=== PATIENT | male | born 1965 | race Caucasian/White ===

== ENCOUNTER → 2019-02-26 17:40 | Outpatient (CLI) | payer OTHER, SELFPAY ==
--- NOTE | 2019-02-26 17:46 | DI.MRI.S_ITS ---
PROCEDURE: MR HEAD/BRAIN WO CON INDICATIONS: olfactory hallucination TECHNIQUE: Noncontrast axial T1 spin echo, axial T2 fast spin echo, sagittal and axial FLAIR, coronal T2 fast spin echo, axial gradient echo, axial diffusion and ADC through the brain. COMPARISON: None. FINDINGS: Image quality: Excellent. CSF Spaces: Basal cisterns are patent. No extra-axial fluid collections. Ventricles are normal in size and shape. Note is made of empty sella. Brain: There is empty sella or a cyst in the pituitary fossa. No intracranial masses or hemorrhage. Flower/white matter interface is normal. Brainstem appears normal. Diffusion-weighted images demonstrate no acute ischemic insult. No chronic ischemic insults. Normal intravascular flow voids are present. Skull and face: Calvarium has normal marrow signal. Orbits appear normal. Sinuses: There is mucosal thickening in maxillary sinuses bilaterally, left witho right. Mastoids are clear. IMPRESSION: 1. No acute intracranial abnormalities. 2. Empty sella or a cyst in the pituitary fossa. Please correlate with pituitary function. If clinically indicated, contrast enhanced images may be obtained. 3. Maxillary sinus disease, left greater than right. Dictated by: Christen Singh M.D. on 02/27/2019 at 7:44 Approved by: Christen Singh M.D. on 02/27/2019 at 10:14
== END ==
PROVIDERS: Family Provider Nurse Practitioner Family; PCP Nurse Practitioner Family; Visit Provider Nurse Practitioner Family
DX: R44.2 Other hallucinations (principal); J32.0 Chronic maxillary sinusitis
CPT/HCPCS: 70551

== ENCOUNTER → 2019-02-28 08:17 | Outpatient (CLI) | payer OTHER, SELFPAY ==
[2019-02-28 08:40] LABS: Hematocrit 47.4 % (41-53); Hemoglobin 16.5 g/dL (13.5-17.5); Mean Corpuscular HGB Conc 34.8 % (30-36); Mean Corpuscular Volume 86.4 fL (80-100); Platelet Count 251 X10^3/uL (150-400); Red Blood Cell Count 5.49 X10^6/uL (4.5-5.9); Red Cell Distribution Width 12.3 % (11.6-14.8); White Blood Cell Count 5.2 X10^3/uL (4.5-11.0)
[2019-02-28 08:53] LABS: Alanine Aminotransferase 42 IU/L (21-72); Albumin 4.4 g/dL (3.5-5.0); Albumin Globulin Ratio 1.6 (1.0-2.8); Alkaline Phosphatase 45 U/L (38-126); Aspartate Aminotransferase 29 IU/L (17-59); Bilirubin Total 0.5 mg/dL (0.2-1.3); Blood Urea Nitrogen 24 mg/dL (9-20); Calcium 9.5 mg/dL (8.4-10.2); Carbon Dioxide 26 mmol/L (22-32); Chloride 107 mmol/L (98-107); Cholesterol 201 mg/dL (140-199); Estimated Glomerular Filt Rate > 60.0 mL/min (>60); Globulin 2.8 g/dL (1.7-4.1); Glucose 134 mg/dL (70-100); HDL Cholesterol 32 mg/dL (40-60); HEMOLYSIS < 15 (0-50); LDL Cholesterol Calculated 151 mg/dL (<100); Potassium 4.3 mmol/L (3.4-5.1); Sodium 142 mmol/L (137-145); Total Protein 7.2 g/dL (6.3-8.2); Triglycerides 91 mg/dL (35-150)
[2019-02-28 09:09] LABS: Prolactin 12.2 ng/mL (3.7-17.9)
[2019-02-28 09:31] LABS: Follicle Stimulating Hormone 7.61 mIU/mL; Luteinizing Hormone 3.59 mIU/mL
[2019-02-28 09:43] LABS: TSH w/ Reflex to FT4 2.68 uIU/mL (0.47-4.68)
[2019-03-03 16:03] LABS: Adrenocorticotropic Hormone 13 pg/mL (6-50)
[2019-03-04 15:25] LABS: Growth Hormone 0.1 ng/mL (< 7.2)
== END ==
PROVIDERS: Family Provider Nurse Practitioner Family; PCP Nurse Practitioner Family; Visit Provider Nurse Practitioner Family
DX: Z00.00 Encounter for general adult medical examination without abnormal findings (principal); K76.0 Fatty (change of) liver, not elsewhere classified; E23.7 Disorder of pituitary gland, unspecified; Z13.6 Encounter for screening for cardiovascular disorders
CPT/HCPCS: 36415; 80053; 80061; 82024; 83001; 83002; 84146; 84443; 85027; 86277

== ENCOUNTER → 2019-06-30 07:43 | Outpatient (CLI) | payer BC, SELFPAY ==
--- NOTE | 2019-06-30 07:44 | DI.MRI.S_ITS ---
PROCEDURE: MR BRAIN (PITUITARY) WWO CON INDICATIONS: abnormal MRI, empty sella or pituitary cyst TECHNIQUE: Noncontrast sagittal and axial FLAIR, axial gradient echo, axial diffusion and ADC through the brain. Thin-slice sagittal and coronal T1 spin echo, coronal T2 fast spin echo through the pituitary. After the administration contrast, optional dynamic coronal T1 spin echo, thin-slice coronal and sagittal T1 spin echo images through the pituitary fossa; axial T1 spin echo with fat saturation through the brain. COMPARISON: [facility], MR, MR HEAD/BRAIN WO CON, 02/26/2019, 18:04. FINDINGS: Image quality: Excellent. Pituitary Gland: Pituitary gland demonstrates congenital variation of empty sella. The infundibulum is midline. CSF Spaces: Ventricles are normal in size and shape. Basal cisterns are patent. No extra-axial fluid collections. Brain: No intracranial bleeds or mass effects. No abnormal intracranial enhancement. Flower-white matter interface is intact. Diffusion weighted images demonstrate no acute ischemic insults. Brainstem is normal. Normal intravascular flow voids are present. Skull and face: Calvarial marrow is normal in signal. Orbits appear normal. Sinuses: Sinuses and mastoids are clear. IMPRESSION: 1. Congenital variation of empty sella. 2. No acute intracranial process. Dictated by: Fiona Sams M.D. on 06/30/2019 at 10:33 Approved by: Fiona Sams M.D. on 06/30/2019 at 10:41
== END ==
PROVIDERS: Family Provider Nurse Practitioner Family; PCP Nurse Practitioner Family; Visit Provider Nurse Practitioner Family
DX: R93.89 Abnormal findings on diagnostic imaging of other specified body structures (principal); E23.6 Other disorders of pituitary gland
CPT/HCPCS: 70553; A9579

== ENCOUNTER → 2019-07-02 17:13 | Outpatient (CLI) | payer BC, SELFPAY ==
--- NOTE | 2019-07-02 17:18 | DI.RAD.S_ITS ---
PROCEDURE: XR RIBS LT MIN 3V W CXR1V INDICATIONS: fall on log/L side ribs TECHNIQUE: 4 views of the left ribs were acquired, along with a single view chest. COMPARISON: None. FINDINGS: Surgical changes and devices: None. Bones and chest wall: No fractures or dislocations. There is questionable cortical step-off involving the lateral left sixth rib however no technically indeterminate No suspicious bony lesions. Overlying soft tissues appear unremarkable. Lungs and pleura: No pleural effusions or pneumothorax. Lungs appear clear. Mediastinum: Mediastinal contours appear normal. Heart size is normal. IMPRESSION: Questionable/subtle cortical step-off involving the lateral left sixth rib however technically indeterminate. Elsewhere, no definite or displaced rib fractures identified No acute cardiopulmonary disease Dictated by: Cecilio Thomas M.D. on 07/02/2019 at 18:35 Approved by: Cecilio Thomas M.D. on 07/02/2019 at 18:40
== END ==
PROVIDERS: Family Provider Nurse Practitioner Family; PCP Nurse Practitioner Family; Visit Provider Physician Assistant
DX: R07.81 Pleurodynia (principal)
CPT/HCPCS: 71101

== ENCOUNTER 2019-08-07 09:31 | Day surgery (SDC) | payer BC, SELFPAY ==
[2019-08-07 09:46] VITALS: BP 126/85; PULSE 81; RESP 16; TEMP 36.9; O2SAT 95; BMI 32.7
[2019-08-07] MEDS: SODIUM CHLORIDE 0.9% 1,000 ML 200 ML IV (10:09)
--- NOTE | 2019-08-07 10:45 | PM.HP.1 ---
History of Present Illness History of Present Illness Date Patient Seen: 08/07/19 Time Patient Seen: 10:45 Chief complaint: [id number] Narrative: This is a 53-year-old man who has never had a screening colonoscopy. He denies any personal or family history of colon polyps or colon cancers. He denies any melena, hematochezia, unexplained abdominal pain, unexplained weight loss. He says he is otherwise in good health. ROS: Thirteen system review is otherwise negative other than as mentioned below and in HPI. PE: GENERAL: Well groomed and cooperative. Appears stated age. Answers questions promptly and appropriately. Vital signs noted. HENT: Normocephalic, atraumatic. Hearing intact. Oral mucosa is pink and moist. EYES: Conjunctiva pink, sclera white, no periorbital swelling. CARDIOVASCULAR: Regular rate. No pedal edema. RESPIRATORY: Non-tachypneic, breathing comfortably on room air. GASTROINTESTINAL: Abdomen soft and non-distended GENITALURINARY: No flank tenderness. MUSCULOSKELETAL: Equal tone and mass bilaterally. SKIN: Warm, dry, soft, appropriate color for ethnicity. No other lesions, rashes, or wounds. NEURO: Alert and Oriented X 3. No gross sensory deficits, or cognitive issues. PSYCH: Appropriate affect and mood. 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 Social History: household members spouse,children lives independently Yes caregiver/support person No Tobacco & Substance use: Smoking Status Former smoker alcohol intake current alcohol intake frequency a few times a week Substance Use Type does not use Meds Home Medications and Allergies Home Medications Medication Instructions Recorded Confirmed Type albuterol sulfate 90 mcg/actuation 2 puff INHALATION Q4-6H PRN 01/21/19 08/07/19 History aerosol inhaler cetirizine 10 mg capsule 10 mg PO DAILY 01/21/19 08/07/19 History cholecalciferol (vitamin D3) 25 1,000 unit PO DAILY 01/21/19 08/07/19 History mcg (1,000 unit) capsule ibuprofen 200 mg tablet 200 mg PO Q6H PRN 01/21/19 08/07/19 History olive leaf extract 250 mg capsule 500 mg PO DAILY cap 06/11/19 08/07/19 History rizatriptan 10 mg tablet 10 mg PO DAILY PRN #30 tab 07/09/19 08/07/19 Rx Allergies Allergy/AdvReac Type Severity Reaction Status Date / Time No Known Drug Allergies Allergy Verified 08/06/19 08:12 Exam Vital Signs (past 8 hours): - 08/07/19 09:46 Temperature 98.4 F Pulse Rate 81 Respiratory Rate 16 Blood Pressure 126/85 Pulse Oximetry 95 Oxygen Delivery Method Room Air Assessment & Plan Assessment and plan (1) At average risk for colon cancer: Current visit: Yes Status: Acute Assessment & Plan narrative: Risks and benefits of screening colonoscopy and possible polypectomy were discussed with the patient including risk of bleeding, perforation, need for additional procedures, risks of anesthesia. The patient desires to proceed with the colonoscopy procedure. Time Spent With Patient Time with patient: 15-24 minutes Quality VTE Deep Vein Thrombosis/Pulmonary Embolism Present on Admission: No
--- NOTE | 2019-08-07 11:11 | PM.OP.ENDO ---
Operative Date/Time/Diagnoses Date of procedure: 08/07/19 Time of procedure: 11:11 Pre-op diagnosis: Average risk for colon cancer Post-op diagnosis: other Procedure & Clinicians Study performed: Screening colonoscopy Same procedure as scheduled: Yes Indications: Average risk for colon cancer, age 53 Surgeon: Eve Stoddard Procedure Notes SCOAP/Timeout: Performed Procedure in detail: The patient was brought to the room and placed in left lateral decubitus position with all bony prominences padded. A time-out was performed and then the patient was given procedural sedation starting with 4 mg of Versed and 100 mcg of fentanyl. Vitals were monitored throughout the procedure and remained stable. Once adequately sedated the procedure was begun. A rectal exam was performed revealing no abnormalities. The colonoscope was then introduced to the rectum and advanced to the cecum in the usual fashion. The cecum was identified by the appendiceal orifice, the mucosal tri-fold, and the ileocecal valve. The scope was then retracted while rotating side to side and examining each mucosal fold. At the conclusion of the procedure retroflexion was performed and small grade 1 internal hemorrhoids without stigmata of bleeding were seen. The scope was then withdrawn from the rectum the procedure was concluded. The patient tolerated the procedure well and was transferred to the PACU in stable condition. Scope withdrawal time: 10 Sedation minutes: 19 Specimen(s): none sent Complications: none Impression: Normal colon, good prep Post-procedure Recommendations: Colonscopy in 10 years Follow up: as needed Disposition: PACU
[2019-08-07] MEDS: fentaNYL 250 MCG/5 ML INJ IV (11:14)
[2019-08-07] MEDS: MIDAZOLAM 5 MG/5 ML VIAL IV (11:15)
[2019-08-07 11:16] VITALS: BP 117/77; PULSE 78; RESP 16; TEMP 36.9; O2SAT 94
[2019-08-07 11:21] VITALS: BP 113/80; PULSE 75; RESP 16; O2SAT 94
[2019-08-07 11:26] VITALS: BP 96/61; PULSE 81; RESP 11; O2SAT 94
[2019-08-07 11:31] VITALS: BP 107/68; PULSE 73; RESP 14; TEMP 36.3; O2SAT 95
[2019-08-07 11:46] VITALS: BP 112/73; PULSE 71; RESP 20; TEMP 36.3; O2SAT 96
--- NOTE | 2019-08-07 11:49 | SUR.PHASEII ---
Home with in stable condition. VSS. Tolerated PO on discharge.
== END 2019-08-07 11:49 | disposition home or self-care (01) ==
PROVIDERS: PCP Nurse Practitioner Family; Referring Provider Nurse Practitioner Family; Visit Provider Surgery
PROC: 0DJD8ZZ Inspection of Lower Intestinal Tract, Via Natural or Artificial Opening Endoscopic (ICD-10-PCS; CPT 45378; principal; 2019-08-07 10:45)
DX: Z12.11 Encounter for screening for malignant neoplasm of colon (principal); K64.0 First degree hemorrhoids
CPT/HCPCS: 45378; 99152; J2250; J3010

== ENCOUNTER → 2020-01-06 14:45 | Outpatient (CLI) | payer BC, SELFPAY ==
[2020-01-08 08:40] LABS: COVID19 Sendout Not Detected
== END ==
PROVIDERS: PCP Nurse Practitioner Family; Visit Provider Physician Assistant
DX: Z11.59 Encounter for screening for other viral diseases (principal); R43.2 Parageusia
CPT/HCPCS: 87635

== ENCOUNTER → 2020-01-14 07:07 | Outpatient (CLI) | payer BC, SELFPAY ==
[2020-01-14 08:46] LABS: Alanine Aminotransferase 66 IU/L (<50); Albumin 4.2 g/dL (3.5-5.0); Albumin Globulin Ratio 1.8 (1.0-2.8); Alkaline Phosphatase 43 U/L (38-126); Aspartate Aminotransferase 34 IU/L (17-59); BUN Creatinine Ratio 21.6 (6-22); Bilirubin Total 0.7 mg/dL (0.2-1.3); Blood Urea Nitrogen 21 mg/dL (9-20); Calcium 9.5 mg/dL (8.4-10.2); Carbon Dioxide 25 mmol/L (22-32); Chloride 106 mmol/L (98-107); Cholesterol 229 mg/dL (140-199); Estimated Glomerular Filt Rate > 60.0 mL/min (>60); Globulin 2.3 g/dL (1.7-4.1); Glucose 130 mg/dL (70-100); HDL Cholesterol 35 mg/dL (40-60); HEMOLYSIS < 15 (0-50); LDL Cholesterol Calculated 157 mg/dL (<100); Magnesium 2.1 mg/dL (1.6-2.3); Potassium 4.6 mmol/L (3.4-5.1); Sodium 139 mmol/L (137-145); Total Protein 6.5 g/dL (6.3-8.2); Triglycerides 184 mg/dL (35-150)
[2020-01-14 09:12] LABS: TSH w/ Reflex to FT4 3.29 uIU/mL (0.47-4.68)
== END ==
PROVIDERS: PCP Nurse Practitioner Family; Referring Provider Nurse Practitioner Family; Visit Provider Nurse Practitioner Family
DX: Z01.812 Encounter for preprocedural laboratory examination (principal); R00.2 Palpitations; E78.2 Mixed hyperlipidemia
CPT/HCPCS: 36415; 80053; 80061; 83735; 84443

== ENCOUNTER → 2020-01-15 07:06 | Outpatient (CLI) | payer BC, SELFPAY ==
[2020-01-15 08:25] LABS: Hemoglobin A1C% w Est Avg Glu 6.2 % (4.0-6.0)
== END ==
PROVIDERS: PCP Nurse Practitioner Family; Referring Provider Nurse Practitioner Family; Visit Provider Nurse Practitioner Family
DX: R73.9 Hyperglycemia, unspecified (principal)
CPT/HCPCS: 36415; 83036

== ENCOUNTER → 2020-01-25 11:28 | Outpatient (CLI) | payer BC, SELFPAY ==
--- NOTE | 2020-02-17 11:14 | PM.CARDMON.1 ---
Tile Finisher Report Referral & Results Date Patient Seen: 01/25/20 Requesting provider: Eligio Otero Indication: Palpitations Duration of monitoring (days): 14 Diary information: There were 13 patient triggered events and 10 patient diary entries Patient triggered events were associated with (within 45 seconds) sinus rhythm and PVCs Patient diary events were associated with sinus rhythm only Data: Minimum heart rate identified was 43 beats per minute at 06:27 on 01/31/2020 Maximum sinus heart rate was 166 beats per minute at 14:16 on 02/05/2020 Maximum overall heart rate was 169 beats per minute at 14:16 on 02/05/2020 during a run of ventricular tachycardia Less than 1% of identified beats or either ventricular supraventricular ectopic in origin. 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
== END ==
PROVIDERS: Family Provider Nurse Practitioner Family; PCP Nurse Practitioner Family; Referring Provider Nurse Practitioner Family; Visit Provider Nurse Practitioner Family
DX: R00.2 Palpitations (principal)
CPT/HCPCS: 0296T; 0298T

== ENCOUNTER → 2020-02-02 13:35 | Outpatient (CLI) | payer BC, SELFPAY ==
[2020-02-03 09:54] LABS: COVID19 Sendout Not Detected (Not Detect)
== END ==
PROVIDERS: Family Provider Nurse Practitioner Family; PCP Nurse Practitioner Family; Visit Provider Physician Assistant
DX: Z11.59 Encounter for screening for other viral diseases (principal)
CPT/HCPCS: 87635

== ENCOUNTER → 2020-02-05 13:21 | Outpatient (CLI) | payer BC, SELFPAY ==
--- NOTE | 2020-02-05 14:33 | PM.TREADMILL ---
Cardiac Stress Test Report Referral & Results Date Patient Seen: 02/05/20 Requesting provider: Eligio Otero Indication: Palpitations Rest ECG: Unremarkable Procedure Note: Today following both written and verbal informed consent, the patient was exercised according to a standard Erick protocol. The patient exercised for a total of 8 minutes 40 seconds achieving a maximum heart rate of 167. Patient's maximum systolic blood pressure was 180. This was an estimated 10.1 MET's. There are no ST-T segment changes identified Normal heart rate and blood pressure response to exercise Function aerobic impairment rated about 5% on the sedentary scale Patient with occasional PVC including couplets and as well as a single run of 6 or 7 beats nonsustained VT Impression: No evidence of ischemia, average exercise capacity Ventricular ectopy as above Clinical correlation suggested Please note: Actual ECG tracings can be found in the PACS system.
--- NOTE | 2020-02-05 15:19 | DI.ECHO.S_ITS ---
Echocardiogram Report + + :Name: DAXA NARANJO Study Date: 02/05/2020 Height: 68 in : :[facility] Exam Location: [facility] Weight: 243 lb : : Gender: Male BSA: 2.2 m2 : :: 1965 Age: 54 yrs BP: 139/87 mmHg: :Reason For Study: Palpitations/ Orthopnea : : Performed By: Marlin Page : + + Interpretation Summary Left ventricular systolic function is normal with an estimated ejection fraction of 65 to 70% without any focal wall motion abnormality. Diastolic function is likely normal with normal filling pressures. The right ventricle appears normal in size and systolic function. Pulmonary artery systolic pressure cannot be estimated but CVP is likely low. Both atria are normal in size. There are no significant valvular abnormalities. The aortic root is mildly enlarged. Procedure: A two-dimensional transthoracic echocardiogram with color flow and Doppler was performed. The study quality was technically adequate. There is no prior echocardiogram noted for this patient. The patient was in normal sinus rhythm during the exam. Left Ventricle: The left ventricle is normal in size, wall thickness, and systolic function without any focal wall motion abnormalities. The ejection fraction is estimated to be 65-70%. Diastolic parameters suggest probable normal left ventricular diastolic function and normal filling pressures. Right Ventricle: The right ventricle is normal in size and function. Atria: Both atria are normal in size. There is no Doppler evidence for an interatrial shunt. Mitral Valve: There is mild mitral annular calcification. The mitral valve leaflets are slightly calcified. There is trace mitral regurgitation. Aortic Valve: The aortic valve is trileaflet. The aortic valve is slightly calcified. The aortic valve opens well. No aortic regurgitation is present. Tricuspid Valve: The tricuspid valve is normal in structure and function. There is a trace or physiologic amount of tricuspid regurgitation. Pulmonary artery pressures cannot be estimated because of the lack of a measurable TR jet velocity. Pulmonic Valve: The pulmonic valve is not well visualized. There is no significant valvular heart disease. Great Vessels: The aortic root is mildly dilated. The ascending aorta is normal in size. The pulmonary artery is not well visualized, but is probably normal size. The inferior vena cava was not well visualized. Pericardium/ Pleura There is no pericardial effusion. There is no pleural effusion. MMode/2D Measurements & Calculations LVIDd: 4.4 cm LVOT diam: 2.2 cm LVIDs: 3.1 cm Ao root diam: 4.0 cm FS: 28.3 % asc Aorta Diam: 3.0 cm IVSd: 0.92 cm LVPWd: 0.71 cm LV lackey. diameter/BSA (cm/m^2): 2.0 LV sys. diameter/BSA (cm/m^2): 1.4 LA A2 area: 21.6 cm2 RA long axis: 4.2 cm LA A4 area: 17.3 cm2 RA area: 13.8 cm2 LA length (vol): 4.7 cm RA vol: 38.6 ml LA vol: 67.2 ml RA : 17.4 ml/m2 LA vol index: 30.3 ml/m2 RVD1 (basal): 3.4 cm TAPSE: 1.9 cm Doppler Measurements & Calculations Ao V2 max: 134.9 cm/sec LVOT Max Jose: 96.0 cm/sec Ao V2 mean: 96.9 cm/sec LV V1 max P.7 mmHg Ao max P.3 mmHg LV V1 VTI: 18.6 cm Ao mean P.1 mmHg MICHELLE(I,D): 3.1 cm2 Ao V2 VTI: 23.6 cm MICHELLE(V,D): 2.8 cm2 sev ratio: 0.79 MICHELLE indexed to BSA (cm^2/m^2): 1.4 MV E max jose: 66.5 cm/sec PA V2 max: 80.5 cm/sec MV A max jose: 76.5 cm/sec PA V2 mean: 62.6 cm/sec MV E/A: 0.87 PA mean P.6 mmHg Med Peak E' Jose: 6.7 cm/sec PA pr(Accel): 41.3 mmHg E/E' med: 9.9 Lat Peak E' Jose: 7.9 cm/sec E/E' lat: 8.4 E/e' average: 9.2 MV dec time: 0.20 sec SV(LVOT): 73.3 ml Reading Physician:04:57 PM
== END ==
PROVIDERS: Family Provider Nurse Practitioner Family; PCP Nurse Practitioner Family; Referring Provider Nurse Practitioner Family; Visit Provider Nurse Practitioner Family
DX: I77.810 Thoracic aortic ectasia (principal); R00.2 Palpitations; R06.01 Orthopnea
CPT/HCPCS: 93016; 93017; 93018; 93306

== ENCOUNTER → 2020-02-11 16:28 | Outpatient (CLI) | payer BC, SELFPAY ==
--- NOTE | 2020-02-11 16:30 | DI.RAD.S_ITS ---
PROCEDURE: XR ELBOW LT MIN 3V INDICATIONS: left elbow pain with flexion TECHNIQUE: 3 views of the elbow were acquired. COMPARISON: None. FINDINGS: Bones: No fractures or dislocations. No suspicious bony lesions. Soft tissues: No elbow joint effusion. No suspicious soft tissue calcifications. IMPRESSION: No trauma found. No effusion identified. Dictated by: Hermilo Hartmann M.D. on 02/11/2020 at 16:53 Approved by: Hermilo Hartmann M.D. on 02/11/2020 at 16:54
== END ==
PROVIDERS: Family Provider Nurse Practitioner Family; PCP Nurse Practitioner Family; Referring Provider Nurse Practitioner Family; Visit Provider Nurse Practitioner Family
DX: M25.522 Pain in left elbow (principal)
CPT/HCPCS: 73080

== ENCOUNTER → 2020-03-23 16:55 | Outpatient (CLI) | payer BC, SELFPAY ==
--- NOTE | 2020-03-23 16:56 | DI.US.S_ITS ---
PROCEDURE: US ABDOMEN COMPLETE INDICATIONS: fatty liver TECHNIQUE: Real-time scanning was performed of the abdominal and retroperitoneal organs, with image documentation. COMPARISON: None. FINDINGS: Liver: The liver demonstrates mildly prominent size. The liver demonstrates generalized moderately increased echogenicity, with areas of heterogeneity. This decreases ultrasound sensitivity for detection of hepatic masses. Gallbladder: No findings of gallstones or sludge are seen. The gallbladder wall is not thickened, measuring 3 mm or less. No specific pericholecystic fluid is seen. The sonographic Fine sign is negative. Biliary ducts: Intrahepatic bile ducts are non-dilated. Extrahepatic bile duct caliber measures 4 mm. Normal is 6-7 mm or less in diameter, or 10 mm or less post-cholecystectomy. Pancreas: Visualized portions of the pancreas are sonographically normal. Spleen: Spleen is normal in size and homogeneous in echotexture. Kidneys: Kidneys are normal in size and echotexture. Right kidney measures 12.1 cm long; left kidney measures 12.6 cm long. No hydronephrosis or nephrolithiasis. No solid masses. Aorta: Visualized aorta is normal in caliber at less than 3 cm. Iliacs: Proximal common iliac arteries are normal in caliber at less than 2.5 cm. IVC: Intrahepatic inferior vena cava is patent. Miscellaneous: No free abdominal fluid. IMPRESSION: Hyperechoic, heterogeneous liver, which is most consistent with patchy fatty infiltration. The gallbladder demonstrates a normal sonographic appearance. No biliary dilatation is seen. Dictated by: Kali Rogel M.D. on 03/23/2020 at 17:13 Approved by: Kali Rogel M.D. on 03/23/2020 at 17:14
== END ==
PROVIDERS: Family Provider Nurse Practitioner Family; PCP Nurse Practitioner Family; Referring Provider Nurse Practitioner Family; Visit Provider Nurse Practitioner Family
DX: K76.0 Fatty (change of) liver, not elsewhere classified (principal); R74.8 Abnormal levels of other serum enzymes
CPT/HCPCS: 76700

== ENCOUNTER → 2020-03-24 15:02 | Outpatient (CLI) | payer BC, SELFPAY ==
--- NOTE | 2020-03-24 15:04 | DIET.PN ---
Dietary Progress Note Assessment: 54y M c elevated fasting BG (135), preDM (A1c 6.2), HTG (184), HLD (TC 229, LDL 157, HDL 35) and fatty liver (ALT 66) here to lose weight, reverse preDM, and regulate labs. Pt worked as hr manager for 20y and was passively active, went back to school and is now sedentary as computer customer support specialist. Pt has and three children, ages 11, 11, 13yos. Right now everyone is at home working/learning due to coronavirus. put on 20# since covid, has lost 7-8# since starting new eating pattern. Pt has no regular physical activity right now but likes to hike and kayak usually by self as he enjoys morning workouts and his is an evening algology teacher. Pt feels his habit of binge eating to deal with stress before bed is a major culprit in his current health. Usual Day: wakes 7am usually gets 6-7h sleep, semi-rested working on it, would like 8hr does personal computer work- personal planning and goals not coffee drinker fizzy water and pot of tea (black and herbal) then broth (O organics- all flavors) Midmornings: keeps 2 homemade soups in fridge at all times- chickpea gonzales, clam chowder (heavier than usual), chicken lite noodle, hot and sour fizzy water and pot of tea, broth midafternoon: more soup a few times per week: avocado, nuts, lean proteins (fish, chicken, fish, beans) 5:30pm: palauan 1-2x/mo, pizza once per month, chicken, tuna salad c olives and avocado over spinach, toasted cheese sandwich loves mayonnaise hang out on couch and watch something together as family after dinner when stressed, tends to start eating: salty and fatty- small corn tortillas c cheese, potato chips, cheese sandwich, cottage cheese c salt and pepper, almond butter sandwich happens one or two days per week, wakes up with racing heart Exercise: not much right now, can only watch tv if pedalling HT: 5'8 WT: 230# Weight Goal: 165# BMI: 35 Labs: fasting BG 135 H, A1c 6.2 H, TG 184 H, TC 229 H, LDL 157 H, HDL 35 L, ALT 66 H Nutrition Diagnosis: altered nutrition related laboratory values r/t undesirable food choices and physical inactivity aeb pt has no regular physical activity with sedentary job, BMI 35, labs as listed above, pt reports binging on high carb high sodium foods in the evening and waking up with racing heart. Interventions: 1. Discussed increasing soluble fiber to support HLD and BG by incorporating daily beans, nuts, seeds (mikael, ground flax). 2. Introduced pt to Fasting Mimicking Diet with food plan as he has been experimenting with Intermittent Fasting and this is an easier and effective method for 5d cycles twice per year or up to once per month. 3. Discussed role of regular intentional physical activity for overall health and his personal health goals. Pt has committed to only watching tv when exercising. Set goal of at least 150min per week with heart rate between 100-135bpm. 4. Introduced pt to concept of hunger scale to assess personal hunger/fullness in relation to his current 1400kcal diet and tendency to binge eat in the evening. Pt will assess his hunger using this scale and start to journal when he gets the urge to binge to assess associated emotions and situations. Pt will develop list of alternate activities to settle these situations and emotions. Monitoring/Evaluations: f/u in 6w to assess progress and barriers, give Mediterranean diet recipe handout*
== END ==
PROVIDERS: Family Provider Nurse Practitioner Family; PCP Nurse Practitioner Family; Referring Provider Nurse Practitioner Family; Visit Provider Nurse Practitioner Family
DX: R73.03 Prediabetes (principal); R73.9 Hyperglycemia, unspecified; E78.5 Hyperlipidemia, unspecified; K76.0 Fatty (change of) liver, not elsewhere classified; E66.9 Obesity, unspecified; Z68.35 Body mass index [BMI] 35.0-35.9, adult; Z71.3 Dietary counseling and surveillance
CPT/HCPCS: 97802

== ENCOUNTER → 2020-04-19 11:55 | Outpatient (CLI) | payer BC, SELFPAY ==
[2020-04-19 14:13] LABS: Hemoglobin A1C% w Est Avg Glu 6.1 % (4.0-6.0)
[2020-04-19 14:24] LABS: Alanine Aminotransferase 58 IU/L (<50); Albumin 4.6 g/dL (3.5-5.0); Albumin Globulin Ratio 1.8 (1.0-2.8); Alkaline Phosphatase 49 U/L (38-126); Aspartate Aminotransferase 34 IU/L (17-59); BUN Creatinine Ratio 17.1 (6-22); Bilirubin Total 0.7 mg/dL (0.2-1.3); Bilirubin Unconjugated 0.5 mg/dL (0.0-1.1); Blood Urea Nitrogen 19 mg/dL (9-20); Calcium 9.3 mg/dL (8.4-10.2); Carbon Dioxide 25 mmol/L (22-32); Chloride 108 mmol/L (98-107); Cholesterol 148 mg/dL (140-199); Estimated Glomerular Filt Rate > 60.0 mL/min (>60); Globulin 2.5 g/dL (1.7-4.1); Glucose 105 mg/dL (70-100); HDL Cholesterol 29 mg/dL (40-60); HEMOLYSIS < 15 (0-50); LDL Cholesterol Calculated 94 mg/dL (<100); Potassium 4.6 mmol/L (3.4-5.1); Sodium 140 mmol/L (137-145); Total Protein 7.1 g/dL (6.3-8.2); Triglycerides 123 mg/dL (35-150)
== END ==
PROVIDERS: Family Provider Nurse Practitioner Family; PCP Nurse Practitioner Family; Referring Provider Nurse Practitioner Family; Visit Provider Nurse Practitioner Family
DX: R73.03 Prediabetes (principal); E78.2 Mixed hyperlipidemia; R74.8 Abnormal levels of other serum enzymes
CPT/HCPCS: 36415; 80053; 80061; 80076; 83036

== ENCOUNTER → 2020-05-04 15:31 | Outpatient (CLI) | payer BC, SELFPAY ==
--- NOTE | 2020-05-04 | DI.MRI.S_ITS ---
PROCEDURE: MR CERVICAL SPINE WO/W CON INDICATIONS: MIGRAINE CERV. TECHNIQUE: Noncontrast sagittal T1 spin echo and T2 fast spin echo, sagittal STIR, foraminal oblique sagittal T2 fast spin echo, axial gradient echo or T2 fast spin echo through the cervical spine. After the administration of contrast, axial and sagittal T1 spin echo with fat saturation through the cervical spine. COMPARISON: None. FINDINGS: Image quality: Excellent. Alignment and curvature: There is normal bony alignment. Marrow: Marrow is normal in overall signal, without suspicious enhancement. Spinal cord: Visualized spinal cord has normal size and signal. No cerebellar tonsillar herniation. No abnormal intramedullary enhancement. Paraspinous soft tissues: No paravertebral masses or suspicious enhancement. C2-3: Normal appearance. C3-4: Mild degenerative disc height reduction with a mild posterior transverse disc bulge. This effaces CSF from the anterior thecal sac but does not significantly did distort the adjacent cervical cord. Free CSF space is present dorsal to the cord. C4-5: Normal appearance. C5-6: Normal appearance. C6-7: A minimal degree of degenerative changes are present at C6-7 comprised of slight disc height reduction and a slight posterior disc bulge at the midline without effacement of CSF from the anterior or posterior thecal sac. C7-T1: Normal appearance. IMPRESSION: There is mild anterior spinal stenosis without anterior cervical cord distortion at the C3-C4 level secondary to a mild degree of disc height reduction and transverse posterior disc bulging. Definite nerve root impingement is not seen. Minimal such degeneration is also seen at C6-7 where CSF is maintained both anterior and posterior to the cervical cord at the disc bulge level. Dictated by: Hermilo Hartmann M.D. on 05/06/2020 at 8:28 Approved by: Hermilo Hartmann M.D. on 05/06/2020 at 8:34
--- NOTE | 2020-05-04 | DI.MRI.S_ITS ---
PROCEDURE: MR HEAD/BRAIN WO/W CON INDICATIONS: MIGRAINE CERV. TECHNIQUE: Noncontrast axial T1 spin echo, axial T2 fast spin echo, sagittal and axial FLAIR, coronal T2 fast spin echo, axial gradient echo, axial diffusion and ADC through the brain. After the administration of contrast, axial and coronal 3D VIBE or T1 spin echo with fat saturation through the brain. COMPARISON: [facility], MR, MR HEAD/BRAIN WO CON, 02/26/2019, 18:04. [facility], MR, MR BRAIN (PITUITARY) WWO CON, 06/30/2019, 7:50. FINDINGS: Image quality: Excellent. CSF Spaces: Basal cisterns are patent. No extra-axial fluid collections. Ventricles are normal in size and shape. Brain: No midline shift. No intracranial bleeds or masses. No abnormal intracranial enhancement. The brainstem appears normal. Diffusion-weighted images demonstrate no acute ischemic insults. No chronic ischemic insults. Normal intravascular flow voids are present. Note is again made of the morphology of empty sella Skull and face: Calvarial marrow is normal in signal. Orbits appear normal. Sinuses: Sinuses and mastoids appear clear. IMPRESSION: Excellent appearance of the brain parenchyma for age, source of persistent recurrent migraine is not identified. No sign of mass, inflammation, or prior appreciable atherosclerotic change. As has been previously documented by MR scanning from 2018 and early 2019 the patient shows a stable appearance of empty sella. Dictated by: Hermilo Hartmann M.D. on 05/06/2020 at 8:12 Approved by: Hermilo Hartmann M.D. on 05/06/2020 at 8:27
== END ==
PROVIDERS: Family Provider Nurse Practitioner Family; PCP Nurse Practitioner Family; Referring Provider Psychiatry & Neurology Neurology; Visit Provider Psychiatry & Neurology Neurology
DX: G43.719 Chronic migraine without aura, intractable, without status migrainosus (principal); M54.2 Cervicalgia; M54.12 Radiculopathy, cervical region; M48.02 Spinal stenosis, cervical region; E23.6 Other disorders of pituitary gland
CPT/HCPCS: 70553; 72156; A9579

== ENCOUNTER → 2020-05-11 15:28 | Outpatient (CLI) | payer BC, SELFPAY ==
--- NOTE | 2020-05-11 15:38 | DIET.PN ---
Dietary Progress Note Telehealth f/u for 54y M c preDM and HLD. Pt had labs drawn after two months and A1c has dropped from 6.2 to 6.1 and lipids have changed drastically TG 184 --> 123, TC 229 --> 148, LDL 157 --> 94. Pt had negative reaction to Topamax for migraines so until he figured out this and stopped the medication, pt was not actively exercising resulting in weight maintenance but not weight loss. Pt is testing his fasting BG which is around 130. Pt wakes up frequently at night so he will start testing and tracking during the night to see the trend so we can adjust evening meal/snack. Pt has been on track for his dietary intake, he is using Mediterranean principles and has success in his morning and noontime meals but still struggling some with evening meals secondary to family preference and feeling like he was doing good earlier in the day. Pt had two binge eating occurrences in last month because of stress. He feels like he managed well and we discussed stress management techniques not involving food. Pt is picking up keys to his new home this afternoon which is joyful, but feels it will tempt him to not work out and to order more take out during the month long process. f/u in early June to assess progress.
== END ==
PROVIDERS: Family Provider Nurse Practitioner Family; PCP Nurse Practitioner Family; Referring Provider Nurse Practitioner Family; Visit Provider Nurse Practitioner Family
DX: R73.03 Prediabetes (principal); E78.5 Hyperlipidemia, unspecified; Z71.3 Dietary counseling and surveillance
CPT/HCPCS: 97803

== ENCOUNTER → 2020-06-30 16:49 | Outpatient (CLI) | payer BC, SELFPAY ==
[2020-06-30 16:51] VITALS: BMI 34.9
--- NOTE | 2020-06-30 16:51 | DIET.PN ---
Dietary Progress Note 54y M attending telehealth f/u to manage preDM and metabolic syndrome. Pt is currently at 150% IBW. Pt successfully moved into his new home and followed through with his goal of ensuring tea and broth were at both houses to keep him hydrated and keep his good motivation going. Pt has been taking a 5k step walk every other day and is attaining 7k steps per day. Pt is going to focus for the next two weeks on healthy meal planning, tracking kcals and carbs. Right now pt is trying to hit macro balance of 30% carbs, 35% fat, and 35% protein at 1300 kcals. Discussed c pt his BEE is 1800 kcals and since he is actively adding physical activity it would be prudent to increase kcals to 1500 at minimum. Pt continues to use [employer] for meal prep ideas and tries to get two servings of fish per week, beans, avocado, and nuts into his meal routine. Discussed c pt increasing step goal to 10k once he is totally moved out of the old house. F/u in 2w to assess progress and problem solve barriers.
== END ==
PROVIDERS: Family Provider Nurse Practitioner Family; PCP Nurse Practitioner Family; Referring Provider Nurse Practitioner Family; Visit Provider Nurse Practitioner Family
DX: R73.03 Prediabetes (principal); Z71.3 Dietary counseling and surveillance
CPT/HCPCS: 97803

== ENCOUNTER → 2020-07-14 16:00 | Outpatient (CLI) | payer BC, SELFPAY ==
--- NOTE | 2020-07-14 16:03 | DIET.PN ---
Dietary Progress Note 54y M attending telehealth follow up for preDM and obesity. Currently -6# and up +1# for a total of -5# to date. Pt has been tracking his food and physical activity and sharing c RD, he feels this is very helpful and helps him to understand the behavior patterns which lead to poor food choices. Pt directed goals: pt would like to change 1/2 plate fruits and veggies to a fruit or veggie with each meal or snack to make it more achievable pt will buy 3 pre-made vegetable dishes like stuffed mushrooms to keep on hand each week pt feels like weekends are less structured so more likely to have poor choices, pt will not track Saturdays but will wake up Saturday morning to do daily meal planning. Pts family is super supportive of his efforts and are also benefitting from the healthier food environment and his higher activity levels. Pt progressing well, we will schedule 2w telehealth follow-up to continue working towards weight and A1c goals.
== END ==
PROVIDERS: Family Provider Nurse Practitioner Family; PCP Nurse Practitioner Family; Referring Provider Nurse Practitioner Family; Visit Provider Nurse Practitioner Family
DX: R73.03 Prediabetes (principal); E66.9 Obesity, unspecified; Z71.3 Dietary counseling and surveillance
CPT/HCPCS: 97803

== ENCOUNTER → 2020-07-28 15:59 | Outpatient (CLI) | payer BC, SELFPAY ==
--- NOTE | 2020-07-28 16:01 | DIET.PN ---
Dietary Progress Note Telehealth f/u for 54y M c preDM and obesity. Pt submitting daily stats to RD for review. Pt is overall doing excellent in building healthy Mediterranean style meals, getting regular water and walking in, as well as trying to manage stress and sleep. Pt is somewhat frustrated with slow speed of weight loss. RD encouraged pt as he has made many changes over the past 2mo which are sustainable and healthy. Healthy weight loss happens slowly and is about analyzing and adjusting behavioral patterns. Pt started taking hikes with his son who motivates him to vary the altitude of their hikes. Pt not doing any strength training to support and build muscle mass. Pt will continue current interventions over the next two weeks and will start thinking about strength training he may be willing to do and enjoy. Telehealth f/u in 2w to assess progress and problem solve barriers.
== END ==
PROVIDERS: Family Provider Nurse Practitioner Family; PCP Nurse Practitioner Family; Referring Provider Nurse Practitioner Family; Visit Provider Nurse Practitioner Family
DX: R73.03 Prediabetes (principal); E66.9 Obesity, unspecified; Z71.3 Dietary counseling and surveillance
CPT/HCPCS: 97803

== ENCOUNTER → 2020-08-11 15:55 | Outpatient (CLI) | payer BC, SELFPAY | PROVIDERS: Family Provider Nurse Practitioner Family; PCP Nurse Practitioner Family; Referring Provider Nurse Practitioner Family; Visit Provider Nurse Practitioner Family | DX: R73.03 Prediabetes (principal) ==

== ENCOUNTER → 2020-08-18 17:10 | Outpatient (CLI) | payer BC, SELFPAY ==
--- NOTE | 2020-08-18 17:12 | DIET.PN ---
Dietary Progress Note 54y M attending telehealth f/u for help c managing preDM and obesity. Pt continues to do well with his nutrition, staying within 1500kcals, 88g pro, and 150g CHO. Pt is hitting his 7k steps per day goal and just started doing a plank strength training program which he enjoys. Being a new homeowner, pt has been saving his workouts for doing housework on the weekends. Discussed importance of daily physical activity to manage blood sugar levels rather than relying on weekends only. Pt hasn't seen much weight loss yet but feels he has made huge strides in healthy eating. He eats vegetables with every meal, is eating a Mediterranean diet, and limiting refined carbohydrates. Pt will add 20 minutes on spin bike in the evenings while watching his favorite shows to increase weekday physical activity in addition to what he is currently doing to encourage weight loss of 1-2#/w. f/u in 2w to assess progress and problem solve barriers.
== END ==
PROVIDERS: Family Provider Nurse Practitioner Family; PCP Nurse Practitioner Family; Referring Provider Nurse Practitioner Family; Visit Provider Nurse Practitioner Family
DX: R73.03 Prediabetes (principal); E66.9 Obesity, unspecified
CPT/HCPCS: 97803

== ENCOUNTER → 2020-09-01 09:00 | Outpatient (CLI) | payer BC, SELFPAY | PROVIDERS: Family Provider Nurse Practitioner Family; PCP Family Medicine; Referring Provider Nurse Practitioner Family; Visit Provider Nurse Practitioner Family | DX: R73.03 Prediabetes (principal); Z71.3 Dietary counseling and surveillance | CPT/HCPCS: 97803 ==

== ENCOUNTER → 2020-09-09 08:44 | Outpatient (CLI) | payer BC, SELFPAY ==
[2020-09-09] MEDS: COVID-19 VACC #1, MRNA(MOD) 100 MCG/0.5 ML VIAL IM (08:49)
== END ==
PROVIDERS: Family Provider Nurse Practitioner Family; PCP Nurse Practitioner Family; Visit Provider Internal Medicine
DX: Z23 Encounter for immunization (principal)
CPT/HCPCS: 0011A; 91301

== ENCOUNTER → 2020-10-03 15:17 | Outpatient (CLI) | payer BC, SELFPAY ==
--- NOTE | 2020-10-03 15:19 | DI.RAD.S_ITS ---
PROCEDURE: XR KNEE RT 3V INDICATIONS: right knee pain TECHNIQUE: 3 views of the knee were acquired. COMPARISON: None. FINDINGS: Bones: No fractures or dislocations. No suspicious bony lesions. Soft tissues: Trace joint effusion. No suspicious soft tissue calcifications. IMPRESSION: Trace joint effusion; otherwise no definite radiographic abnormality. If pain persists with conservative management, consider cross sectional imaging such as CT or MRI for further assessment. Dictated by: Sam Sousa [facility] Interpreted: Harvinder Magana MD on 10/03/2020 at 16:15 Approved by: Harvinder Magana M.D. on 10/03/2020 at 16:54
== END ==
PROVIDERS: Family Provider Nurse Practitioner Family; PCP Family Medicine; Referring Provider Family Medicine; Visit Provider Family Medicine
DX: M25.561 Pain in right knee (principal)
CPT/HCPCS: 73562

== ENCOUNTER → 2020-10-07 08:32 | Outpatient (CLI) | payer BC, SELFPAY ==
[2020-10-07] MEDS: COVID-19 VACC #2, MRNA(MOD) 100 MCG/0.5 ML VIAL IM (08:37)
== END ==
PROVIDERS: Family Provider Nurse Practitioner Family; PCP Family Medicine; Visit Provider Internal Medicine
DX: Z23 Encounter for immunization (principal)
CPT/HCPCS: 0012A; 91301

== ENCOUNTER → 2020-11-16 14:56 | Outpatient (CLI) | payer BC, SELFPAY ==
--- NOTE | 2020-11-16 14:58 | DI.RAD.S_ITS ---
PROCEDURE: XR SHOULDER LT MIN 2V INDICATIONS: left shoulder pain TECHNIQUE: 3 views of the shoulder were acquired. COMPARISON: None. FINDINGS: Bones: No fractures or dislocations. No suspicious bony lesions. Visualized ribs appear intact. Soft tissues: No suspicious soft tissue calcifications. IMPRESSION: Mild osteoarthritis at the AC joint, no prior trauma found. Dictated by: Hermilo Hartmann M.D. on 11/16/2020 at 15:31 Approved by: Hermilo Hartmann M.D. on 11/16/2020 at 15:31
== END ==
PROVIDERS: Family Provider Nurse Practitioner Family; PCP Family Medicine; Referring Provider Family Medicine; Visit Provider Family Medicine
DX: M25.512 Pain in left shoulder (principal); M19.012 Primary osteoarthritis, left shoulder
CPT/HCPCS: 73030

== ENCOUNTER → 2021-06-16 09:35 | Outpatient (CLI) | payer BC, SELFPAY ==
[2021-06-16 10:39] LABS: Add Manual Diff / Slide Review NO; Basophils Absolute Auto 100 /uL (0-100); Basophils Percent Auto 1.3 % (0-2); Eosinophils Absolute Auto 200 /uL (0-450); Eosinophils Percent Auto 2.9 % (2-4); Hematocrit 45.4 % (41-53); Hemoglobin 15.8 g/dL (13.5-17.5); Lymphocytes Absolute Auto 2200 /uL (1100-4500); Lymphocytes Percent Auto 36.8 % (25-40); Mean Corpuscular HGB Conc 34.8 % (30-36); Mean Corpuscular Hemoglobin 30.3 PG (26-34); Mean Corpuscular Volume 87.2 fL (80-100); Monocytes Absolute Auto 500 /uL (0-900); Monocytes Percent Auto 8.2 % (3-14); Neutrophils Absolute Auto 3100 /uL (1500-7000); Neutrophils Percent Auto 50.8 % (50-75); Platelet Count 261 X10^3/uL (150-400); Red Cell Distribution Width 12.5 % (11.6-14.8); White Blood Cell Count 6.1 X10^3/uL (4.5-11.0)
[2021-06-16 10:47] LABS: Hemoglobin A1C% w Est Avg Glu 6.5 % (4.0-6.0)
[2021-06-16 13:28] LABS: Alanine Aminotransferase 60 IU/L (<50); Albumin 4.4 g/dL (3.5-5.0); Albumin Globulin Ratio 1.7 (1.0-2.8); Alkaline Phosphatase 39 U/L (38-126); Aspartate Aminotransferase 32 IU/L (17-59); BUN Creatinine Ratio 20.9 (6-22); Bilirubin Total 0.7 mg/dL (0.2-1.3); Blood Urea Nitrogen 23 mg/dL (9-20); Calcium 9.5 mg/dL (8.4-10.2); Carbon Dioxide 29 mmol/L (22-32); Chloride 106 mmol/L (98-107); Cholesterol 171 mg/dL (140-199); Estimated Glomerular Filt Rate > 60.0 mL/min (>60); Globulin 2.6 g/dL (1.7-4.1); Glucose 117 mg/dL (70-100); HDL Cholesterol 32 mg/dL (40-60); HEMOLYSIS < 15 (0-50); LDL Cholesterol Calculated 110 mg/dL (<100); Potassium 5.3 mmol/L (3.4-5.1); Sodium 141 mmol/L (137-145); Triglycerides 145 mg/dL (35-150)
[2021-06-16 13:41] LABS: TSH w/ Reflex to FT4 3.39 uIU/mL (0.47-4.68)
== END ==
PROVIDERS: Family Provider Nurse Practitioner Family; PCP Family Medicine; Referring Provider Family Medicine; Visit Provider Family Medicine
DX: E78.2 Mixed hyperlipidemia (principal); K76.0 Fatty (change of) liver, not elsewhere classified; R73.03 Prediabetes; R74.8 Abnormal levels of other serum enzymes
CPT/HCPCS: 36415; 80053; 80061; 83036; 84443; 85025

== ENCOUNTER → 2021-08-03 13:43 | Outpatient (CLI) | payer BC, SELFPAY ==
--- NOTE | 2021-08-09 09:26 | DIAB.INIT ---
Addendum entered by Leigh Simons 08/09/21 09:57: Plans to take 2nd and 3rd DSME classes. Original Note: Initial Diabetes Education Assessment Name: Viraj Wood Date: 08/03/21 Time: 210-305p Dx: Type II Diabetes Provider: Lizette Culver Learning Style: Listening, watching, doing Viraj presents today for initial DM education visit. Has been working with Karla CANALES on diet previous to DM diagnosis. He has made notable changes to his diet and is eating a Mediterranean inspired diet. Per his food tracking, kcal intake is low at 1250-1400kcals dialy, carb intake is low for him as well at 110g per day, but he is getting plenty of fiber. Protein is a bit low due to mostly plant based proteins. Interested in trying the fasting mimicking diet. It seems his diet is already well managed. Viraj reports a h/o progressively less physical activity over years. States he was quite active when working at [employer] ([place] in his 20s. 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 Limited knowledge about Dm physiology. Takin Metformin 1000 mg BID without SE. Physical Activity: Enjoys group classes and hiking. Group class cost was a barrier in the past, this is no longer a concern. States this helps with his anxiety. Also enjoys road biking in the summer. Currently limited activity, possibly 1-3 x per week walking/hiking. Self-Monitoring Blood Glucose: Most readings in range per ADA guidelines. He reports a goal of reducing BG. Could consider following tighter AACE guidelines of <110 FBG and <140 1-2 hr pc. His pc readings are already in range per AACE. Also, could follow a more individualized approach and aim for FBG <120 mg/dL, which might be attainable with more physical activity. Date Pre Post Pre Post Pre Post HS 07/24 131 112 2/15 125 110 2/16 119 17 133 18 118 102 07/30 126 07/31 128 Diabetes Medications: Metformin 1000 mg BID Pertinent Labs: HgA1c 6.5% Past Medical History: (Last Updated 06/20/21 @ 15:59 by August Bauer MD) Allergies Anxiety (~1978) Avoidant personality disorder Bulging disc L5 Cervical radiculopathy (~2017) Cervical spine disease (~2017) Chronic back pain (~1987) Depression (~1978) Depression with anxiety (1978) Diabetes mellitus Dizziness Elevated liver enzymes Empty sella (02/26/19) Fatty infiltration of liver Foot pain (~2014) GERD (gastroesophageal reflux disease) History of umbilical hernia repair (~2008) Liver disease (~1997) Maxillary sinusitis (02/26/19) Migraines (~1994) Mixed hyperlipidemia (02/28/19) 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 Provided appropriate educational handouts. Discussed the following topics: Completed intake assessment. Discussed barriers to care. Pathophysiology of type 2 diabetes: insulin resistance, gluconeogenesis, beta cell dysfunction Impact of hormones on overnight FBG ADA vs AACE BG goals and individualized goals Self-monitoring, how often, and when to check Current nutrition goals Increasing protein intake Role of physical activity and ways to increase and impact on FBG potentially Role of nutrition/medication/activity in DM Created SMART goals for patient self-care and success. Goals: 2-3 hikes per week Look into taking classes again Follow-up: OSKAR BONDS follow-up in 2-4 weeks Leigh Simons RDN, [facility] Certified Diabetes Care and Head Wood Grinder P: [phone] Thank you for this referral
== END ==
PROVIDERS: Family Provider Nurse Practitioner Family; PCP Family Medicine; Referring Provider Family Medicine; Visit Provider Family Medicine
DX: E11.9 Type 2 diabetes mellitus without complications (principal)
CPT/HCPCS: G0108

== ENCOUNTER → 2021-08-15 08:48 | Outpatient (CLI) | payer BC, SELFPAY ==
--- NOTE | 2021-08-17 15:22 | DIAB.FU ---
Diabetes Education Class Series: Diabetes Physiology and Medications Name: Viraj Wood Date: 08/15/21 Time: 930-12:30 Viraj reports working on his activity to help with FBG mgmnt. He participated well in class and asked appropriate questions. Class topics covered: ? Diabetes pathophysiology ? Discuss different types of diabetes ? Review criteria for diagnosing diabetes ? Review HgA1c measurement and associated blood sugars ? Review blood sugar monitoring safety, technique, and goals ? Discuss ways to reduce complications associated with diabetes, includes microvascular and macrovascular complications ? Review diabetes medications types, action, and side effects ? Health care visits recommended for people with T2DM ? Immunization recommended for people with T2DM ? SMART goals review Goal Set: Exercise 4 x per week Follow-up: Diabetes Lifestyle and Ongoing Support Class next week Leigh Simons RDN, [facility] Registered Dietitian, Certified Diabetes Care and Bottle Inspector [phone] [email or web address]
== END ==
PROVIDERS: Family Provider Nurse Practitioner Family; PCP Family Medicine; Referring Provider Family Medicine; Visit Provider Family Medicine
DX: E11.9 Type 2 diabetes mellitus without complications (principal)
CPT/HCPCS: G0109

== ENCOUNTER → 2021-08-22 09:04 | Outpatient (CLI) | payer BC, SELFPAY ==
--- NOTE | 2021-08-25 17:38 | DIAB.FU ---
Diabetes Education Class Series: Diabetes Lifestyle Change and Ongoing Support Name: Viraj Wood Date: 08/22/21 Time: 080-5118 Viraj reports nutrition is going well. He is currently working more on exercise. Also endorses PMH of anxiety and depression. Shared with the class coping and treatment experiences. Class topics covered: ? Discuss the difference between physical activity and exercise ? Determine physical activity benefits and impact on diabetes ? Review physical activity recommendations and safety ? Discuss emergency preparedness ? Discuss diabetes and emotions (diabetes burnout/distress) ? Review and practice stress management techniques ? Review support groups and community resources ? Discuss the role of family support in diabetes care ? What is going well? Challenges of diabetes? ? Set SMART goals Goal Set: Workout 3-4 x per week Follow-up: 1:1 visit follow-up Leigh Simons RDN, [facility] Registered Dietitian, Certified Diabetes Care and Materials Research Engineer [phone] [email or web address]
== END ==
PROVIDERS: Family Provider Nurse Practitioner Family; PCP Family Medicine; Referring Provider Family Medicine; Visit Provider Family Medicine
DX: E11.9 Type 2 diabetes mellitus without complications (principal)
CPT/HCPCS: G0109

== ENCOUNTER → 2021-08-31 09:45 | Outpatient (CLI) | payer BC, SELFPAY ==
--- NOTE | 2021-09-06 17:48 | DIAB.FU ---
Follow-up Diabetes Education Assessment Name: Viraj Wood Date: 08/31/21 Time: 8794-9253 Dx: Type II Diabetes Viraj presents for diabetes ed follow-up. States he continues to do well in nutrition. Endorses balanced low carb meals. Feeling overall very good about nutrition choices. Keeps 3 healthy and tasty dishes in the fridge at all times. Has decreased meat intake and increased laguna and veggie intake. Reports h/o emotional eating r/t anxiety. Exercise helps with his anxiety. Today he would like to discuss how to keep motivated in physical activity. States this has been a barrier in the past after a knee injury. Wants to devise a plan to close the gap on physical inactivity when that occurs. Has not had a recent dental visit. Did receive pneumonia vaccine. Physical Activity: Reports hiking 2 days per week and gym classes 2 days per week. Reports in the past physical activity had impacted his productivity with working from home. This was also consequently when he lost 20# in 2020. Self-Monitoring Blood Glucose: Limited recent readings. Seem slightly elevated from last visit. Date Pre Post Pre Post Pre Post HS 08/09 143 08/15 172 08/17 142 08/31 138 Diabetes Medications: Metformin 1000 mg BID Pertinent Labs: HgA1c 6.5% Past Medical History: (Last Updated 06/20/21 @ 15:59 by August Bauer MD) Allergies Anxiety (~1978) Avoidant personality disorder Bulging disc L5 Cervical radiculopathy (~2017) Cervical spine disease (~2017) Chronic back pain (~1987) Depression (~1978) Depression with anxiety (1978) Diabetes mellitus Dizziness Elevated liver enzymes Empty sella (02/26/19) Fatty infiltration of liver Foot pain (~2014) GERD (gastroesophageal reflux disease) History of umbilical hernia repair (~2008) Liver disease (~1997) Maxillary sinusitis (02/26/19) Migraines (~1994) Mixed hyperlipidemia (02/28/19) 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 Provided appropriate educational handouts. Discussed the following topics: Recent blood sugar results and trends Review of general nutrition recommendations and current intake Physical activity plan and impact on blood sugars Plan to stay motivated; stage of change and getting back on track with yoga Created SMART goals for patient self-care and success. Goals: 2-3 hikes per week- met Look into taking classes again- met 3 yoga classes per week if unable to do usual exercises (future plan)- new Aim for 3 gym classes weekly- new Call dentist today Follow-up: OSKAR BODNS follow-up in 3-4 weeks Leigh Simons RDN, [facility] Certified Diabetes Care and Tool Design Drafter P: [phone] Thank you for this referral
== END ==
PROVIDERS: Family Provider Nurse Practitioner Family; PCP Family Medicine; Referring Provider Family Medicine; Visit Provider Family Medicine
DX: E11.9 Type 2 diabetes mellitus without complications (principal); Z79.84 Long term (current) use of oral hypoglycemic drugs
CPT/HCPCS: G0108

== ENCOUNTER → 2021-09-21 09:40 | Outpatient (CLI) | payer BC, SELFPAY ==
[2021-09-21 11:05] LABS: Alanine Aminotransferase 63 IU/L (<50); Albumin 4.5 g/dL (3.5-5.0); Albumin Globulin Ratio 1.7 (1.0-2.8); Alkaline Phosphatase 39 U/L (38-126); Aspartate Aminotransferase 36 IU/L (17-59); BUN Creatinine Ratio 12.7 (6-22); Bilirubin Total 0.6 mg/dL (0.2-1.3); Blood Urea Nitrogen 13 mg/dL (9-20); Calcium 8.8 mg/dL (8.4-10.2); Carbon Dioxide 25 mmol/L (22-32); Chloride 106 mmol/L (98-107); Cholesterol 160 mg/dL (140-199); Estimated Glomerular Filt Rate > 60 mL/min (>60); Globulin 2.7 g/dL (1.7-4.1); Glucose 118 mg/dL (70-100); HDL Cholesterol 27 mg/dL (40-60); HEMOLYSIS < 15 (0-50); LDL Cholesterol Calculated 111 mg/dL (<100); Potassium 4.3 mmol/L (3.4-5.1); Sodium 139 mmol/L (137-145); Total Protein 7.2 g/dL (6.3-8.2); Triglycerides 111 mg/dL (35-150)
[2021-09-21 11:11] LABS: Hemoglobin A1C% w Est Avg Glu 6.3 % (4.0-6.0)
[2021-09-21 14:59] LABS: Creatinine Urine Random 40.5 mg/dL
[2021-09-21 15:27] LABS: Microalbumin Urine Random < 0.6 mg/dL (0-1.6)
== END ==
PROVIDERS: Family Provider Nurse Practitioner Family; PCP Family Medicine; Referring Provider Family Medicine; Visit Provider Family Medicine
DX: E11.9 Type 2 diabetes mellitus without complications (principal); K76.0 Fatty (change of) liver, not elsewhere classified; R74.8 Abnormal levels of other serum enzymes
CPT/HCPCS: 36415; 80053; 80061; 82043; 82570; 83036

== ENCOUNTER → 2022-05-08 09:19 | Outpatient (CLI) | payer BC, SELFPAY ==
[2022-05-08 11:26] LABS: Alanine Aminotransferase 89 IU/L (<50); Albumin 4.5 g/dL (3.5-5.0); Albumin Globulin Ratio 1.9 (1.0-2.8); Alkaline Phosphatase 40 U/L (38-126); Aspartate Aminotransferase 41 IU/L (17-59); BUN Creatinine Ratio 25.9 (6-22); Bilirubin Total 0.7 mg/dL (0.2-1.3); Blood Urea Nitrogen 22 mg/dL (9-20); Calcium 9.1 mg/dL (8.4-10.2); Carbon Dioxide 24 mmol/L (22-32); Chloride 103 mmol/L (98-107); Estimated Glomerular Filt Rate > 60 mL/min (>60); Globulin 2.4 g/dL (1.7-4.1); Glucose 137 mg/dL (70-100); HEMOLYSIS < 15 (0-50); Potassium 4.6 mmol/L (3.4-5.1); Sodium 137 mmol/L (137-145); Total Protein 6.9 g/dL (6.3-8.2)
[2022-05-08 12:26] LABS: Hemoglobin A1C% w Est Avg Glu 6.9 % (4.0-6.0)
== END ==
PROVIDERS: Family Provider Nurse Practitioner Family; PCP Family Medicine; Referring Provider Family Medicine; Visit Provider Family Medicine
DX: E11.9 Type 2 diabetes mellitus without complications (principal); K76.0 Fatty (change of) liver, not elsewhere classified; R74.8 Abnormal levels of other serum enzymes
CPT/HCPCS: 36415; 80053; 83036

== ENCOUNTER → 2022-08-16 09:32 | Outpatient (CLI) | payer BC, SELFPAY ==
[2022-08-16 10:25] LABS: Add Manual Diff / Slide Review NO; Basophils Absolute Auto 100 /uL (0-100); Basophils Percent Auto 1.1 % (0-2); Eosinophils Absolute Auto 100 /uL (0-450); Eosinophils Percent Auto 1.6 % (2-4); Hematocrit 46.2 % (41-53); Hemoglobin 15.8 g/dL (13.5-17.5); Lymphocytes Absolute Auto 2000 /uL (1100-4500); Lymphocytes Percent Auto 34.1 % (25-40); Mean Corpuscular HGB Conc 34.3 % (30-36); Mean Corpuscular Hemoglobin 30.2 PG (26-34); Monocytes Absolute Auto 500 /uL (0-900); Monocytes Percent Auto 8.6 % (3-14); Neutrophils Absolute Auto 3200 /uL (1500-7000); Neutrophils Percent Auto 54.6 % (50-75); Platelet Count 250 X10^3/uL (150-400); Red Blood Cell Count 5.25 X10^6/uL (4.5-5.9); Red Cell Distribution Width 12.5 % (11.6-14.8); White Blood Cell Count 5.8 X10^3/uL (4.5-11.0)
[2022-08-16 10:54] LABS: Hemoglobin A1C% w Est Avg Glu 7.2 % (4.0-6.0)
[2022-08-16 11:15] LABS: Alanine Aminotransferase 84 IU/L (<50); Albumin 4.5 g/dL (3.5-5.0); Albumin Globulin Ratio 1.7 (1.0-2.8); Alkaline Phosphatase 48 U/L (38-126); Aspartate Aminotransferase 43 IU/L (17-59); BUN Creatinine Ratio 27.2 (6-22); Bilirubin Total 0.7 mg/dL (0.2-1.3); Blood Urea Nitrogen 25 mg/dL (9-20); Calcium 9.1 mg/dL (8.4-10.2); Carbon Dioxide 26 mmol/L (22-32); Chloride 104 mmol/L (98-107); Cholesterol 185 mg/dL (140-199); Estimated Glomerular Filt Rate > 60 mL/min (>60); Globulin 2.6 g/dL (1.7-4.1); Glucose 137 mg/dL (70-100); HDL Cholesterol 33 mg/dL (40-60); HEMOLYSIS 17 (0-50); LDL Cholesterol Calculated 112 mg/dL (<100); Potassium 5.2 mmol/L (3.4-5.1); Sodium 139 mmol/L (137-145); Total Protein 7.1 g/dL (6.3-8.2); Triglycerides 201 mg/dL (35-150)
[2022-08-16 11:18] LABS: Creatinine Urine Random 129.3 mg/dL
[2022-08-16 11:26] LABS: Microalbumin Urine Random < 0.6 mg/dL (0-1.6)
[2022-08-16 11:51] LABS: TSH w/ Reflex to FT4 2.67 uIU/mL (0.47-4.68)
== END ==
PROVIDERS: Family Provider Nurse Practitioner Family; PCP Family Medicine; Referring Provider Family Medicine; Visit Provider Family Medicine
DX: E11.9 Type 2 diabetes mellitus without complications (principal); E66.9 Obesity, unspecified; E78.2 Mixed hyperlipidemia; K76.0 Fatty (change of) liver, not elsewhere classified
CPT/HCPCS: 36415; 80053; 80061; 82043; 82570; 83036; 84443; 85025

== ENCOUNTER → 2022-12-21 14:48 | Outpatient (CLI) | payer BC, SELFPAY ==
[2022-12-21 15:51] LABS: Alanine Aminotransferase 87 IU/L (<50); Albumin 4.1 g/dL (3.5-5.0); Albumin Globulin Ratio 1.5 (1.0-2.8); Alkaline Phosphatase 41 U/L (38-126); Aspartate Aminotransferase 47 IU/L (17-59); BUN Creatinine Ratio 25.5 (6-22); Bilirubin Total 0.5 mg/dL (0.2-1.3); Blood Urea Nitrogen 27 mg/dL (9-20); Calcium 9.1 mg/dL (8.4-10.2); Carbon Dioxide 26 mmol/L (22-32); Chloride 105 mmol/L (98-107); Cholesterol 144 mg/dL (140-199); Estimated Glomerular Filt Rate > 60 mL/min (>60); Globulin 2.8 g/dL (1.7-4.1); Glucose 98 mg/dL (70-100); HDL Cholesterol 32 mg/dL (40-60); HEMOLYSIS 19 (0-50); LDL Cholesterol Calculated 74 mg/dL (<100); Potassium 4.1 mmol/L (3.4-5.1); Sodium 139 mmol/L (137-145); Total Protein 6.9 g/dL (6.3-8.2); Triglycerides 188 mg/dL (35-150)
== END ==
PROVIDERS: Family Provider Nurse Practitioner Family; PCP Family Medicine; Referring Provider Family Medicine; Visit Provider Family Medicine
DX: E11.9 Type 2 diabetes mellitus without complications (principal); E78.2 Mixed hyperlipidemia; K76.0 Fatty (change of) liver, not elsewhere classified
CPT/HCPCS: 36415; 80053; 80061; 83036

== ENCOUNTER → 2023-06-18 11:14 | Outpatient (CLI) | payer BC, SELFPAY ==
[2023-06-18 12:24] LABS: Hemoglobin A1C% w Est Avg Glu 5.9 % (4.0-6.0)
[2023-06-18 12:46] LABS: Alanine Aminotransferase 91 IU/L (<50); Albumin 4.5 g/dL (3.5-5.0); Albumin Globulin Ratio 1.8 (1.0-2.8); Alkaline Phosphatase 41 U/L (38-126); Aspartate Aminotransferase 55 IU/L (17-59); BUN Creatinine Ratio 22.9 (6-22); Bilirubin Total 0.7 mg/dL (0.2-1.3); Blood Urea Nitrogen 24 mg/dL (9-20); Calcium 9.6 mg/dL (8.4-10.2); Carbon Dioxide 26 mmol/L (22-32); Chloride 101 mmol/L (98-107); Estimated Glomerular Filt Rate > 60 mL/min (>60); Globulin 2.5 g/dL (1.7-4.1); Glucose 96 mg/dL (70-100); HEMOLYSIS < 15 (0-50); Potassium 4.3 mmol/L (3.4-5.1); Sodium 137 mmol/L (137-145)
[2023-06-18 18:30] LABS: Microalbumin Urine Random 0.7 mg/dL (0-1.6)
[2023-06-18 18:34] LABS: Creatinine Urine Random 198.4 mg/dL; Microalbumi Creatinin Ratio Ur 3.5 ug/mg CR (<30)
== END ==
LOC: LAB 11:16
PROVIDERS: PCP Family Medicine; Referring Provider Family Medicine; Visit Provider Family Medicine
DX: E11.9 Type 2 diabetes mellitus without complications (principal); R74.8 Abnormal levels of other serum enzymes; E78.2 Mixed hyperlipidemia; E66.9 Obesity, unspecified
CPT/HCPCS: 36415; 80053; 82043; 82570; 83036

== ENCOUNTER → 2023-09-17 09:28 | Outpatient (CLI) | payer BC, SELFPAY ==
[2023-09-17 10:35] LABS: Add Manual Diff / Slide Review NO; Basophils Absolute Auto 100 /uL (0-100); Basophils Percent Auto 0.8 % (0-2); Eosinophils Absolute Auto 100 /uL (0-450); Eosinophils Percent Auto 1.2 % (2-4); Hematocrit 44.6 % (41-53); Hemoglobin 15.6 g/dL (13.5-17.5); Lymphocytes Absolute Auto 2200 /uL (1100-4500); Lymphocytes Percent Auto 31.4 % (25-40); Mean Corpuscular HGB Conc 35.1 % (30-36); Mean Corpuscular Hemoglobin 31.1 PG (26-34); Mean Corpuscular Volume 88.5 fL (80-100); Monocytes Absolute Auto 600 /uL (0-900); Monocytes Percent Auto 8.2 % (3-14); Neutrophils Absolute Auto 4100 /uL (1500-7000); Neutrophils Percent Auto 58.4 % (50-75); Platelet Count 285 X10^3/uL (150-400); Red Blood Cell Count 5.03 X10^6/uL (4.5-5.9)
[2023-09-17 11:29] LABS: Microalbumin Urine Random 1.4 mg/dL (0-1.6)
[2023-09-17 11:36] LABS: TSH w/ Reflex to FT4 1.64 uIU/mL (0.47-4.68)
[2023-09-17 12:20] LABS: Creatinine Urine Random 393.5 mg/dL; Microalbumi Creatinin Ratio Ur 3.5 ug/mg CR (<30)
[2023-09-17 16:43] LABS: HEMOLYSIS < 15 (0-50)
[2023-09-17 16:59] LABS: Alanine Aminotransferase 49 IU/L (<50); Albumin 4.1 g/dL (3.5-5.0); Albumin Globulin Ratio 1.8 (1.0-2.8); Alkaline Phosphatase 45 U/L (38-126); Aspartate Aminotransferase 29 IU/L (17-59); BUN Creatinine Ratio 26.2 (6-22); Bilirubin Total 0.6 mg/dL (0.2-1.3); Blood Urea Nitrogen 28 mg/dL (9-20); Calcium 9.5 mg/dL (8.4-10.2); Carbon Dioxide 24 mmol/L (22-32); Chloride 111 mmol/L (98-107); Cholesterol 124 mg/dL (140-199); Estimated Glomerular Filt Rate > 60 mL/min (>60); Globulin 2.3 g/dL (1.7-4.1); Glucose 84 mg/dL (70-100); HDL Cholesterol 37 mg/dL (40-60); LDL Cholesterol Calculated 60 mg/dL (<100); Potassium 4.6 mmol/L (3.4-5.1); Sodium 141 mmol/L (137-145); Total Protein 6.4 g/dL (6.3-8.2); Triglycerides 136 mg/dL (35-150)
[2023-09-17 19:28] LABS: Hemoglobin A1C% w Est Avg Glu 5.3 % (4.0-6.0)
[2023-09-18 09:21] LABS: Apolipoprotein B 76 mg/dL (<90)
[2023-09-19 03:47] LABS: Lipoprotein (a) 22.6 nmol/L (<75.0)
[2023-09-19 11:28] LABS: Prostate Specific Antigen Scrn 0.491 ng/mL (0.1-4.0)
== END ==
PROVIDERS: PCP Family Medicine; Referring Provider Family Medicine; Visit Provider Family Medicine
DX: Z13.6 Encounter for screening for cardiovascular disorders (principal); Z12.5 Encounter for screening for malignant neoplasm of prostate; E11.9 Type 2 diabetes mellitus without complications; R74.8 Abnormal levels of other serum enzymes; E78.2 Mixed hyperlipidemia; E66.9 Obesity, unspecified; K76.0 Fatty (change of) liver, not elsewhere classified
CPT/HCPCS: 36415; 80053; 80061; 82043; 82172; 82570; 83036; 83695; 84443; 85025; G0103

== ENCOUNTER → 2023-11-27 16:07 | Outpatient (CLI) | payer BC, SELFPAY ==
--- NOTE | 2023-11-27 16:09 | DI.RAD.S_ITS ---
PROCEDURE: XR HAND RT MIN 3V INDICATIONS: Pain at DIP 3rd, 4th, 5th fingers TECHNIQUE: 3 views of the hand(s) acquired. COMPARISON: None. FINDINGS: Bones: No fractures or dislocations. Mild osteoarthritis throughout right hand and wrist joints are seen with joint space narrowing and subchondral sclerosis. Radiolucent areas are noted involving radial aspect of 3rd and 4th proximal phalangeal heads. Carpal bones are normally aligned. No suspicious bony lesions. Soft tissues: No suspicious soft tissue calcifications. IMPRESSION: No right hand fracture or dislocation. 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 Radiolucencies involving radial aspect of 3rd and 4th proximal phalangeal heads concerning for erosive changes secondary to inflammatory arthropathy versus subcortical cysts. Dictated by: Reza Pritchard M.D. on 11/27/2023 at 17:22 Approved by: Reza Pritchard M.D. on 11/27/2023 at 17:23
--- NOTE | 2023-11-27 16:09 | DI.RAD.S_ITS ---
PROCEDURE: XR HAND LT MIN 3V INDICATIONS: Pain at DIP 3rd, 4th, 5th fingers TECHNIQUE: 3 views of the hand(s) acquired. COMPARISON: None. FINDINGS: Bones: No fractures or dislocations. Mild osteoarthritic changes are noted at 1st CMC joint, 1st MCP joint and 1st through 5th interphalangeal joints with joint space narrowing and subchondral sclerosis. Subtle radiolucency involving radial aspect of 2nd and 4th proximal phalangeal heads. Carpal bones are normally aligned. No suspicious bony lesions. Soft tissues: No suspicious soft tissue calcifications. IMPRESSION: No fracture or dislocation. Very mild left hand and wrist joint osteoarthritis as above. Possible subtle erosion versus subcortical cysts involving radial aspect of 2nd and 4th proximal phalangeal heads suggest clinical correlation. Dictated by: Reza Pritchard M.D. on 11/27/2023 at 17:20 Approved by: Reza Pritchard M.D. on 11/27/2023 at 17:22
== END ==
PROVIDERS: PCP Family Medicine; Referring Provider Physician Assistant; Visit Provider Physician Assistant
DX: M19.042 Primary osteoarthritis, left hand (principal); M19.041 Primary osteoarthritis, right hand; M19.232 Secondary osteoarthritis, left wrist; M19.231 Secondary osteoarthritis, right wrist; M79.645 Pain in left finger(s); M79.644 Pain in right finger(s)
CPT/HCPCS: 73130

== ENCOUNTER → 2023-12-19 13:08 | Outpatient (CLI) | payer BC, SELFPAY ==
[2023-12-19 15:14] LABS: Alanine Aminotransferase 67 IU/L (<50); Albumin 4.3 g/dL (3.5-5.0); Albumin Globulin Ratio 1.8 (1.0-2.8); Alkaline Phosphatase 43 U/L (38-126); Aspartate Aminotransferase 72 IU/L (17-59); BUN Creatinine Ratio 22.7 (6-22); Bilirubin Total 0.7 mg/dL (0.2-1.3); Blood Urea Nitrogen 22 mg/dL (9-20); Calcium 9.5 mg/dL (8.4-10.2); Carbon Dioxide 27 mmol/L (22-32); Chloride 110 mmol/L (98-107); Estimated Glomerular Filt Rate > 60 mL/min (>60); Globulin 2.4 g/dL (1.7-4.1); Glucose 86 mg/dL (70-100); HEMOLYSIS < 15 (0-50); Potassium 4.8 mmol/L (3.4-5.1); Sodium 140 mmol/L (137-145); Total Protein 6.7 g/dL (6.3-8.2)
[2023-12-19 19:02] LABS: Hemoglobin A1C% w Est Avg Glu 5.4 % (4.0-6.0)
== END ==
PROVIDERS: PCP Family Medicine; Referring Provider Family Medicine; Visit Provider Family Medicine
DX: E11.9 Type 2 diabetes mellitus without complications (principal)
CPT/HCPCS: 36415; 80053; 83036

== ENCOUNTER → 2024-03-12 10:48 | Outpatient (CLI) | payer BC, SELFPAY ==
[2024-03-12 12:05] LABS: Alanine Aminotransferase 26 IU/L (<50); Albumin 4.1 g/dL (3.5-5.0); Albumin Globulin Ratio 1.6 (1.0-2.8); Alkaline Phosphatase 33 U/L (38-126); Aspartate Aminotransferase 24 IU/L (17-59); BUN Creatinine Ratio 25.8 (6-22); Bilirubin Total 0.8 mg/dL (0.2-1.3); Blood Urea Nitrogen 25 mg/dL (9-20); Calcium 9.2 mg/dL (8.4-10.2); Carbon Dioxide 27 mmol/L (22-32); Chloride 103 mmol/L (98-107); Cholesterol 200 mg/dL (140-199); Estimated Glomerular Filt Rate > 60 mL/min (>60); Globulin 2.5 g/dL (1.7-4.1); Glucose 96 mg/dL (70-100); HDL Cholesterol 42 mg/dL (40-60); HEMOLYSIS < 15 (0-50); LDL Cholesterol Calculated 139 mg/dL (<100); Potassium 4.4 mmol/L (3.4-5.1); Sodium 135 mmol/L (137-145); Total Protein 6.6 g/dL (6.3-8.2); Triglycerides 93 mg/dL (35-150)
[2024-03-12 12:06] LABS: Hemoglobin A1C% w Est Avg Glu 5.1 % (4.0-6.0)
== END ==
PROVIDERS: PCP Family Medicine; Referring Provider Family Medicine; Visit Provider Family Medicine
DX: E11.9 Type 2 diabetes mellitus without complications (principal); K76.0 Fatty (change of) liver, not elsewhere classified; E78.2 Mixed hyperlipidemia; E66.9 Obesity, unspecified; R74.8 Abnormal levels of other serum enzymes
CPT/HCPCS: 36415; 80053; 80061; 83036

== ENCOUNTER → 2024-04-20 13:28 | Outpatient (CLI) | payer BC, SELFPAY ==
[2024-04-20 13:57] LABS: Add Manual Diff / Slide Review NO; Basophils Absolute Auto 100 /uL (0-100); Basophils Percent Auto 0.9 % (0-2); Eosinophils Absolute Auto 100 /uL (0-450); Eosinophils Percent Auto 1.4 % (2-4); Hematocrit 47.2 % (41-53); Lymphocytes Absolute Auto 2500 /uL (1100-4500); Mean Corpuscular HGB Conc 33.8 % (30-36); Mean Corpuscular Hemoglobin 30.4 PG (26-34); Mean Corpuscular Volume 89.8 fL (80-100); Monocytes Absolute Auto 600 /uL (0-900); Monocytes Percent Auto 8.4 % (3-14); Neutrophils Absolute Auto 3500 /uL (1500-7000); Neutrophils Percent Auto 52.3 % (50-75); Platelet Count 353 X10^3/uL (150-400); Red Blood Cell Count 5.26 X10^6/uL (4.5-5.9); Red Cell Distribution Width 12.5 % (11.6-14.8); White Blood Cell Count 6.8 X10^3/uL (4.5-11.0)
[2024-04-20 14:11] LABS: Alanine Aminotransferase 26 IU/L (<50); Albumin 4.4 g/dL (3.5-5.0); Alkaline Phosphatase 38 U/L (38-126); Aspartate Aminotransferase 23 IU/L (17-59); BUN Creatinine Ratio 23.1 (6-22); Bilirubin Total 0.6 mg/dL (0.2-1.3); Blood Urea Nitrogen 21 mg/dL (9-20); C-Reactive Protein Quant < 0.5 mg/dL (<1.0); Calcium 9.5 mg/dL (8.4-10.2); Carbon Dioxide 25 mmol/L (22-32); Chloride 105 mmol/L (98-107); Estimated Glomerular Filt Rate > 60 mL/min (>60); Globulin 2.2 g/dL (1.7-4.1); Glucose 91 mg/dL (70-100); HEMOLYSIS < 15 (0-50); Potassium 4.5 mmol/L (3.4-5.1); Sodium 137 mmol/L (137-145); Total Protein 6.6 g/dL (6.3-8.2)
== END ==
PROVIDERS: PCP Family Medicine; Referring Provider Physician Assistant Medical; Visit Provider Physician Assistant Medical
DX: R51.9 Headache, unspecified (principal)
CPT/HCPCS: 36415; 80053; 85025; 85652; 86140

== ENCOUNTER → 2024-07-20 09:49 | Outpatient (CLI) | payer BC, SELFPAY ==
[2024-07-20 11:12] LABS: Cholesterol 242 mg/dL (140-199); HDL Cholesterol 43 mg/dL (40-60); LDL Cholesterol Calculated 182 mg/dL (<100); Triglycerides 85 mg/dL (35-150)
[2024-07-21 07:39] LABS: Apolipoprotein B 134 mg/dL (<90)
== END ==
PROVIDERS: PCP Family Medicine; Referring Provider Family Medicine; Visit Provider Family Medicine
DX: E11.9 Type 2 diabetes mellitus without complications (principal); R74.8 Abnormal levels of other serum enzymes; E78.2 Mixed hyperlipidemia; E66.9 Obesity, unspecified
CPT/HCPCS: 36415; 80061; 82172; 83036

== ENCOUNTER → 2024-08-26 13:13 | Outpatient (CLI) | payer BC, SELFPAY ==
--- NOTE | 2024-08-26 13:14 | DI.CT.S_ITS ---
PROCEDURE: CT LUNG LOW DOSE SCREENING INDICATIONS: lung CA screening TECHNIQUE: Noncontrast 2.0-2.5 mm thick sections acquired from the pulmonary apices to the posterior costophrenic angles. 7 mm thick axial MIP, and 5 mm coronal and sagittal reformats were then acquired. For radiation dose reduction, the following was used: automated exposure control, adjustment of mA and/or kV according to patient size. COMPARISON: None. FINDINGS: Image quality: Diagnostic. Lungs and Pleura: Central and peripheral airways are normal without bronchial wall thickening or bronchiectasis. Mild centrilobular emphysematous changes and minimal scattered septal thickening. No suspicious lung nodules. No pleural effusions or pleural calcifications. Lower Neck: No enlarged lymph nodes. Thyroid: Normal CT appearance. Axillae: No enlarged lymph nodes. Chest Wall: No suspicious chest wall lesions. Bones: No suspicious bone lesion. Mild degenerative changes in the spine. Thoracic Vessels: The aorta and pulmonary arteries demonstrate normal size. Mediastinum and Phuong: No enlarged lymph nodes. Heart: Heart size is normal. No pericardial effusion. Esophagus: No wall thickening. No hiatal hernia. Upper Abdomen: Visualized upper abdomen solid organs and bowel loops appear normal. IMPRESSION: No suspicious pulmonary nodules. LUNG-RADS 1; continued annual screening, if eligible. Clinically Significant Non-pulmonary Findings: None. Dictated by: Iris Ball M.D. on 08/26/2024 at 13:47 Approved by: Iris Ball M.D. on 08/26/2024 at 13:51
== END ==
PROVIDERS: PCP Family Medicine; Referring Provider Family Medicine; Visit Provider Family Medicine
DX: Z12.2 Encounter for screening for malignant neoplasm of respiratory organs (principal); Z87.891 Personal history of nicotine dependence
CPT/HCPCS: 71271

== ENCOUNTER → 2024-10-09 12:37 | Outpatient (CLI) | payer BC, SELFPAY ==
[2024-10-09 13:33] LABS: Hemoglobin A1C% w Est Avg Glu 4.9 % (4.0-6.0)
[2024-10-09 13:34] LABS: Alanine Aminotransferase 28 IU/L (<50); Albumin 4.2 g/dL (3.5-5.0); Albumin Globulin Ratio 2.2 (1.0-2.8); Alkaline Phosphatase 36 U/L (38-126); Aspartate Aminotransferase 26 IU/L (17-59); BUN Creatinine Ratio 23.7 (6-22); Bilirubin Total 0.6 mg/dL (0.2-1.3); Blood Urea Nitrogen 22 mg/dL (9-20); Carbon Dioxide 23 mmol/L (22-32); Chloride 108 mmol/L (98-107); Cholesterol 138 mg/dL (140-199); Estimated Glomerular Filt Rate > 60 mL/min (>60); Globulin 1.9 g/dL (1.7-4.1); Glucose 99 mg/dL (70-99); HDL Cholesterol 41 mg/dL (40-60); HEMOLYSIS < 15 (0-50); LDL Cholesterol Calculated 77 mg/dL (<100); Potassium 4.7 mmol/L (3.4-5.1); Sodium 139 mmol/L (137-145); Total Protein 6.1 g/dL (6.3-8.2); Triglycerides 99 mg/dL (35-150)
[2024-10-09 14:10] LABS: Creatinine Urine Random 179.04 mg/dL
[2024-10-09 14:19] LABS: Microalbumin Urine Random < 0.6 mg/dL (0-1.6)
[2024-10-10 06:09] LABS: Apolipoprotein B 75 mg/dL (<90)
== END ==
PROVIDERS: PCP Family Medicine; Referring Provider Family Medicine; Visit Provider Family Medicine
DX: Z00.00 Encounter for general adult medical examination without abnormal findings (principal); Z12.5 Encounter for screening for malignant neoplasm of prostate; E11.9 Type 2 diabetes mellitus without complications; K76.0 Fatty (change of) liver, not elsewhere classified; E78.2 Mixed hyperlipidemia; E66.9 Obesity, unspecified; F41.8 Other specified anxiety disorders
CPT/HCPCS: 36415; 80053; 80061; 82043; 82172; 82570; 83036; 84443; G0103

== ENCOUNTER → 2024-11-24 10:56 | Outpatient (CLI) | payer BC, SELFPAY | LOC: RESP 10:56 | PROVIDERS: PCP Family Medicine; Referring Provider Internal Medicine Critical Care Medicine; Visit Provider Internal Medicine Critical Care Medicine | DX: J44.9 Chronic obstructive pulmonary disease, unspecified (principal); Z87.891 Personal history of nicotine dependence | CPT/HCPCS: 94060; 94726; 94729 ==

== ENCOUNTER → 2025-01-13 08:43 | Outpatient (CLI) | payer BC, SELFPAY ==
[2025-01-13 09:42] LABS: Hemoglobin A1C% w Est Avg Glu 5.4 % (4.0-6.0)
[2025-01-13 09:48] LABS: Alanine Aminotransferase 26 IU/L (<50); Albumin 4.5 g/dL (3.5-5.0); Albumin Globulin Ratio 2.0 (1.0-2.8); Alkaline Phosphatase 39 U/L (38-126); Blood Urea Nitrogen 25 mg/dL (9-20); Calcium 9.5 mg/dL (8.4-10.2); Carbon Dioxide 24 mmol/L (22-32); Chloride 105 mmol/L (98-107); Estimated Glomerular Filt Rate > 60 mL/min (>60); Globulin 2.3 g/dL (1.7-4.1); Glucose 102 mg/dL (70-99); HEMOLYSIS < 15 (0-50); Potassium 4.6 mmol/L (3.4-5.1); Sodium 139 mmol/L (137-145); Total Protein 6.8 g/dL (6.3-8.2)
== END ==
PROVIDERS: PCP Family Medicine; Referring Provider Family Medicine; Visit Provider Family Medicine
DX: E11.9 Type 2 diabetes mellitus without complications (principal); R74.8 Abnormal levels of other serum enzymes
CPT/HCPCS: 36415; 80053; 83036